=== PATIENT | female | born 1945 | race Caucasian/White ===

== ENCOUNTER 2016-09-06 08:23 | Emergency (ER) | payer OTHER, MEDICARE ==
[~2016-09-06] VITALS: Ht 165.1 cm; Wt 64.9 kg
--- NOTE | 2016-09-06 09:15 | ED GI/GU/ABDOMINAL COMPLAINT ---
History of Present Illness General Chief Complaint: Female Urogenital Problems Stated Complaint: URINARY SYMPTOMS Source: patient Exam Limitations: no limitations Vital Signs & Intake/Output Vital Signs & Intake/Output Vital Signs Date Time Temp Pulse Resp B/P B/P Pulse O2 O2 Flow FiO2 Mean Ox Delivery Rate 09/06 0951 96.4 74 18 143/73 96 09/06 0830 97.3 96 18 127/85 99 Room Air Allergies Coded Allergies: pseudoephedrine (RASH 09/14/15) Triage Note: 70 YO FEMALE TO TRIAGE C/O URINARY URGENCY. STATES SHE HAS SEEN HER MD WHO PUT HER ON ANTIBIOTICS AND CHECKED HER FOR A PROLASPS BLADDER, STATES SINCE THEN SHE STILL HAS THE URGENCY AND ONLY ABLE TO URINATE SMALL AMOUNTS AT A TIMES. STATE SHE IS DUE TO SEE A UROLOGY ON 09/15. Triage Nurses Notes Reviewed? yes ? N Is pt currently ? No HPI: Patient presents for evaluation of urinary tract signs and symptoms that began August 13. Patient was evaluated by her primary care physician and urinalysis was done and turned out to be negative. She tried Macrobid for one day but discontinued this due to diarrhea. She then went on vacation to [place]. Her symptoms have continued. She contacted her medical doctor after returning to the [facility] and was evaluated. Physical examination (concern for bladder or uterine prolapse) was normal. She has been referred to urologist and appointment is pending in September. Patient is complaining of intermittent severe bladder spasms lasting anywhere from 15-30 minutes with dribbling of urine. She denies any associated fever or cold symptoms or back pain. Past History Travel History Traveled to [place] past 21 day No Medical History Any Pertinent Medical History? 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 No Review of Systems Review of Systems Constitutional: Reports: no symptoms. EENTM: Reports: no symptoms. Respiratory: Reports: no symptoms. Cardiovascular: Reports: no symptoms. GI: Reports: no symptoms. Genitourinary: Reports: see HPI. Musculoskeletal: Reports: no symptoms. Skin: Reports: no symptoms. Neurological/Psychological: Reports: no symptoms. Hematologic/Endocrine: Reports: no symptoms. Immunologic/Allergic: Reports: no symptoms. All Other Systems: Reviewed and Negative Physical Exam Physical Exam Gastrointestinal: see below Comments: Gen.: Well-nourished, well-developed, no acute respiratory distress. Head: Normocephalic, atraumatic. Eyes: Normal inspection bilaterally Ears: Normal inspection bilaterally Nose: Normal inspection Throat/mouth : Moist mucosa Neck: Supple, full range of motion, no goiter Heart: Regular rate and rhythm, no murmurs rubs or gallops Lungs: Clear to auscultation bilaterally with normal air entry Chest: Nontender Back: Normal range of motion Abdomen: Soft, mild suprapubic tenderness without rebound or guarding, nondistended, normal bowel sounds Extremities: Normal range of motion grossly, equal radial pulses, no cyanosis clubbing or edema Neurologic: Cranial nerves grossly intact, speech is clear Skin: warm and dry Psychiatric: Calm, cooperative, no apparent delusions or hallucinations Core Measures ACS in differential dx? No Severe Sepsis Present: No Septic Shock Present: No Progress Differential Diagnosis: UTI, PYELONEPH,ORGAN PROLAPSE,INTERSTITIAL CYSTITIS Plan of Care: Orders Procedure Date/time Status URINALYSIS 09/06 0909 Complete Laboratory Tests 09/06/16 0930: Urine Color YEL, Urine Clarity CLEAR, Urine pH 7.0, Ur Specific [place] 1.010, Urine Protein NEG, Urine Ketones NEG, Urine Nitrite NEG, Urine Bilirubin NEG, Urine Urobilinogen 0.2, Ur Leukocyte Esterase NEG, Ur Microscopic EXAM NOT REQUIRED, Urine Hemoglobin NEG, Urine Glucose NEG Initial ED EKG: none Comments: 09:50 PT UPDATED ON UA RESULTS. DIFF DISCUSSED. PT HAS APPT WITH UROLOGIST ON September. Departure Departure Disposition: HOME OR SELF CARE Condition: Stable Clinical Impression Primary Impression: Dysuria Referrals: JUANITO JOHNSON,CHRISS Venegas (PCP/Family) Departure Forms: Customer Survey General Discharge Information Prescriptions: Current Visit Scripts Hyoscyamine (Levsin) 1-2 TAB PO Q6P #20 TAB
[2016-09-06 09:51] VITALS: BP 143/73
[2016-09-06] MEDS ORDERED: LEVSIN0.125 M1 PO ×2 (09:52→10:38)
== END 2016-09-06 09:57 ==
LOC: ERH 08:23
DX: R30.0 Dysuria (principal)
CPT/HCPCS: 81003

== ENCOUNTER → 2017-07-06 | Day surgery (SDC) | payer OTHER, MEDICARE ==
[~2017-07-06] VITALS: Ht 165.1 cm; Wt 64.9 kg
[~2017-07-06] MED LIST: LEVSIN0.125 M1 PO
--- NOTE | 2017-07-06 10:55 | Operative Report ---
Operative/Inv Procedure Report Surgery Date: 07/06/17 Name of Procedure: Cataract extraction with intraocular lens implantation right eye Pre-Operative Diagnosis: Age-related cataract right eye Post-Operative Diagnosis: Same Estimated Blood Loss: none Surgeon/Mail Carriers Supervisor: Santy JOHNSON,Shar Casper Anesthesia: local monitored anesthesi Complications: None Operative/Procedure Note Note: Preoperatively the patient was noted to have 20/40 vision in the right eye with a decrease with glare testing down to 20/50. The risks, benefits, and alternatives to surgery were discussed at length with the patient. Informed consent was obtained. The patient was brought to the operating room where the right eye was prepped and draped in the normal sterile fashion. A speculum was placed on the right eye with good exposure. The axis of the limbal relaxing incision was marked. Using a boo blade at 600 depth, an incision spanning 30 degrees was made without complication. A limbal relaxing incision of equal length and depth was made 180 away.A stab incision was made using a paracentesis blade. Intracameral lidocaine was placed. Viscoelastic was used to form the anterior chamber. A clear corneal incision was made using keratome blade. A continuous curvilinear capsulorrhexis was made using a cystotome needle followed by Utrata forceps. There was no extension of the rhexis. Hydrodissection was performed using balanced salt solution. The cataract was removed using a stop and chop technique. Residual cortex was removed using coaxial irrigation and aspiration. The capsule was polished using irrigation and aspiration and the posterior capsule was cleaned using a balanced salt solution jet. There was no residual lens material inside the eye. The capsular bag was reformed using viscoelastic. An intraocular lens PCBOO of power 12.5 was verified and confirmed. It was loaded into an injector and injected into the eye. The lens was placed entirely within the capsular bag. Viscoelastic was evacuated using irrigation and aspiration. The wounds were stromally hydrated and the eye filled to physiologic pressure using balanced salt solution. Intracameral cefuroxime was placed. Speculum was removed and a shield was placed on the eye. The patient was brought to the recovery area without incident. Instructions were given to follow-up the next day for routine postoperative care.
== END ==
LOC: STS 03:36
DX: H25.9 Unspecified age-related cataract (principal); I10 Essential (primary) hypertension; N32.9 Bladder disorder, unspecified
CPT/HCPCS: J2250; V2632